=== PATIENT | female | born 1995 | race Caucasian/White ===

== ENCOUNTER 2023-10-26 11:53 | Emergency (ER) | payer MEDICAID, OTHER ==
[~2023-10-26] VITALS: Ht 162.6 cm; Wt 89.8 kg
[2023-10-26 12:30] VITALS: BP 147/89; PULSE 84; RESP 17; TEMP 97.9; O2SAT 100
[2023-10-26] MEDS ORDERED: CEPH-588 PO (13:17)
[2023-10-26] MEDS ORDERED: ACET-10509 PO (13:17)
== END 2023-10-26 13:22 | disposition home or self-care (01) ==
LOC: MED 11:53
DX: O99.611 Diseases of the digestive system complicating pregnancy, first trimester (principal); K08.89 Other specified disorders of teeth and supporting structures; Z3A.08 8 weeks gestation of pregnancy; Z79.899 Other long term (current) drug therapy
CPT/HCPCS: 99283